=== PATIENT | female | born 1985 | race Two or more races ===

== ENCOUNTER → 2024-10-21 | Outpatient (CLI) | payer BC, SELFPAY ==
[2024-10-21 13:17] LABS: Basophils % (Auto) 0 % (0-2.5); Eosinophils # (Auto) 0.1 Thou/mm3 (0.0-0.5); Eosinophils % (Auto) 1 % (0-10); Hemoglobin 11.1 g/dL (12.0-16.0); Immature Granulocytes % (Auto) 2 % (0-0); Immature Granulocytes Auto 0.28 Thou/mm3 (0.00-0.00); Lymphocytes # (Auto) 2.8 Thou/mm3 (1.0-4.8); Lymphocytes % (Auto) 23 % (10-50); Mean Corpuscular Hemoglobin 26.9 pg (25.0-35.0); Mean Corpuscular Volume 90 fL (80-100); Monocytes # (Auto) 0.6 Thou/mm3 (0.0-0.8); Monocytes % (Auto) 5 % (0-12); Neutrophils # (Auto) 8.3 Thou/mm3 (1.8-7.7); Neutrophils % (Auto) 69 % (37-80); Nucleated Red Blood Cell % 0 /100 WBC (0); Platelet Count 319 Thou/mm3 (140-440); RDW Standard Deviation 49.5 fL (36.4-46.3); Red Blood Count 4.13 Miln/mm3 (4.00-5.20); White Blood Count 12.1 Thou/mm3 (3.6-11.0)
[2024-10-21 13:47] LABS: Syphilis Nonreactive (Nonreactive)
== END | disposition home or self-care (01) ==
LOC: SLDO 11:51
PROVIDERS: Referring Provider Specialist; Visit Provider Specialist
DX: Z34.83 Encounter for supervision of other normal pregnancy, third trimester (principal)
CPT/HCPCS: 36415; 85025; 86780

== ENCOUNTER → 2024-11-17 | Outpatient (CLI) | payer BC, SELFPAY ==
[2024-11-18 07:50] LABS: BVAG Candida Negative (Negative); Bacterial Vaginosis Markers Negative (Negative); Candida glabrata Negative (Negative); Candida krusei PCR Negative (Negative); Trichomonas Negative (Negative)
== END | disposition home or self-care (01) ==
PROVIDERS: Referring Provider Specialist; Visit Provider Specialist
DX: Z34.83 Encounter for supervision of other normal pregnancy, third trimester (principal)
CPT/HCPCS: 81514; 87086

== ENCOUNTER → 2024-12-08 | Outpatient (CLI) | payer BC, SELFPAY ==
[2024-12-08 11:27] LABS: Basophils % (Auto) 0 % (0-2.5); Eosinophils % (Auto) 0 % (0-10); Hematocrit 35.2 % (36.0-46.0); Hemoglobin 11.6 g/dL (12.0-16.0); Immature Granulocytes % (Auto) 2 % (0-0); Immature Granulocytes Auto 0.22 Thou/mm3 (0.00-0.00); Lymphocytes # (Auto) 2.9 Thou/mm3 (1.0-4.8); Lymphocytes % (Auto) 27 % (10-50); Mean Corpuscular Hemoglobin 25.4 pg (25.0-35.0); Mean Corpuscular Volume 77 fL (80-100); Monocytes # (Auto) 0.6 Thou/mm3 (0.0-0.8); Monocytes % (Auto) 6 % (0-12); Neutrophils # (Auto) 6.8 Thou/mm3 (1.8-7.7); Neutrophils % (Auto) 64 % (37-80); Nucleated Red Blood Cell % 0 /100 WBC (0); Platelet Count 284 Thou/mm3 (140-440); RDW Standard Deviation 41.5 fL (36.4-46.3); Red Blood Count 4.56 Miln/mm3 (4.00-5.20); White Blood Count 10.6 Thou/mm3 (3.6-11.0)
[2024-12-08 11:35] LABS: INR 0.9 (0.9-1.3); Partial Thromboplastin Time 27.1 Seconds (22.0-36.0); Prothrombin Time 9.9 Seconds (9.0-12.2)
[2024-12-08 11:58] LABS: Alanine Aminotransferase 11 U/L (10-49); Albumin, Serum 3.8 gm/dL (3.5-5.0); Albumin/Globulin Ratio 1.5 (1.2-2.2); Alkaline Phosphatase 124 U/L (46-116); Anion Gap 9 (7-16); Aspartate Amino Transferase 17 U/L (0-34); BUN/Creatinine Ratio 16 Ratio (12-20); Bilirubin,Total 0.3 mg/dL (0.3-1.2); Blood Urea Nitrogen 11 mg/dL (9-23); Calcium (Corrected) 10.2 mg/dL (8.5-10.1); Carbon Dioxide 20.6 mMol/L (20.0-31.0); Chloride 106 mMol/L (98-107); Creatinine (Component) 0.7 mg/dL (0.6-1.3); Globulin 2.6 gm/dL (2.3-3.5); Glucose 103 mg/dL (74-106); Osmolality,Calculated 271 (275-295); Sodium 136 mMol/L (136-145); Total Protein 6.4 gm/dL (5.7-8.2); eGFR > 60 See Note
[2024-12-08 12:04] LABS: Syphilis Nonreactive (Nonreactive)
== END | disposition home or self-care (01) ==
LOC: COPL 10:22
PROVIDERS: PCP Family Medicine; Referring Provider Specialist; Visit Provider Specialist
DX: Z34.83 Encounter for supervision of other normal pregnancy, third trimester (principal)
CPT/HCPCS: 36415; 80053; 85025; 85610; 85730; 86780; 86900; 86901

== ENCOUNTER 2024-12-09 05:30 | Inpatient (IN) | payer BC, SELFPAY ==
--- NOTE | 2024-12-02 15:33 | ESHP_ITS ---
RE: MAIKOL TOVAR : 1985 DATE OF ADMISSION: 12/09/2024 HISTORY OF PRESENT ILLNESS: This is a 39-year-old 2 para 1-0-0-1 with due date of 12/14/2024 with intrauterine at 39 weeks and 2 days on 12/09/2024, who presents for repeat delivery. The patient reports occasional contraction. She denies any leaking or bleeding. She reports normal movement. ALLERGIES: NO KNOWN DRUG ALLERGIES. MEDICATIONS: 1. multivitamin 1 p.o. daily. 2. Aspirin 81 mg 1 p.o. daily. SOCIAL HISTORY: She denies any alcohol or drug use or smoking. 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. PAST MEDICAL HISTORY: Carrier for cystic fibrosis (father of the baby is not a carrier for cystic fibrosis). FAMILY HISTORY: Denies. OBSTETRIC HISTORY: 07/2014, 40 weeks, delivery, 6 pound 9 ounce female, no complications. PAST SURGICAL HISTORY: delivery in 2013. REVIEW OF SYSTEMS: She denies any chest pain, palpitations, cough, fever, shortness of breath or lower extremity pain. PHYSICAL EXAMINATION: VITAL SIGNS: Blood pressure 123/72, heart rate 88, respirations 18, temperature 98.2, and weight 188 pounds. HEENT: Oropharynx and sclerae are clear. LUNGS: Clear to auscultation bilaterally. HEART: Regular rate and rhythm. ABDOMEN: Gravid term size. Old Pfannenstiel scar noted. EXTREMITIES: Nontender. SKIN: No gross rashes or lesions. NEUROLOGIC: No focal deficit. ASSESSMENT: Intrauterine at 39 weeks and 2 days on 12/09/2024. Previous delivery. Elects repeat delivery. PLAN: Repeat delivery. Informed consent was obtained. The patient was made aware of the risks, complications, alternatives, and benefits of the proposed procedure and she agrees. DT: 14:16:04 TT: 15:31:00 Ref: [id number] - TID: [id number]
[2024-12-09] VITALS (15 sets, daily range): BP systolic 107–135; BP diastolic 55–86; PULSE 71–108; RESP 16–20; TEMP 36.3–37; O2SAT 97–99; BMI 37.3
[2024-12-09] MEDS: RINGERS LACTATED 1000 ML 1,000 ML 100 ML IV ×3 (06:02→20:38)
[2024-12-09] MEDS: CITRIC ACID/SODIUM CITR 15 ML UDC (BICITRA) 30 ML PO (07:21)
[2024-12-09] MEDS: ceFAZolin/D5W 2 GM IV 2 GM/100 ML BAG IV (07:21)
[2024-12-09] MEDS: FAMOTIDINE INJ 10 MG/ML VIAL 2 ML 20 MG IV (07:21)
--- NOTE | 2024-12-09 08:34 | PD.LDDS ---
DS: Providers Provider Date of admission: 12/09/24 05:30 Primary care physician: Alex Benoit MD Admitting Provider: J Luis Grijalva MD Attending Provider on Admission: J Luis Grijalva MD Attending Provider on DC: J Luis Grijalva MD Discharging Provider: J Luis Grijalva MD DS: Diagnosis Problem List Completed Was Problem List Reviewed/Reconciled?: Yes Summary/Hosp Course Peripartum Data Procedures: Procedures Operation Date: 12/09/24 07:45 Actual Procedure Side Surgeon p in OB J Luis Grijalva MD Time Spent with Patient Time attestation: Total time spent providing and/or coordinating discharge services: Exam Vital Signs Temp Pulse Resp BP 98.1 F 87 17 123/78 12/09/24 05:35 12/09/24 06:09 12/09/24 05:35 12/09/24 06:09 Discharge Plan Plan Patient Disposition: HOME (Self Care) Patient condition on transfer: Stable Prescriptions/Referrals Prescriptions/Med Rec: No Action No Known Home Medications Referrals: Alex Benoit MD [Primary Care Provider] - Patient/Caregiver Discharge Instructions Discharge Activity: activity as tolerated Other Discharge Activity Instructions:: Follow up office 1 week. Education Materials: C Section Dc Print Language: [place] Stand Alone Forms: Janessa Award Info., Patient Portal Info Letter Discharge Order Discharge Orders: Discharge (Routine); Ordered 12/11/24 Ordered By: J Luis Grijalva Planned Discharge Date 12/11/24
--- NOTE | 2024-12-09 09:03 | ESOP_ITS ---
RE: MAIKOL TOVAR : 1985 DATE OF OPERATION: 12/09/2024 PREOPERATIVE DIAGNOSES: 1. Intrauterine at 39 weeks and 2 days. 2. Previous delivery, elects repeat delivery. POSTOPERATIVE DIAGNOSES: 1. Intrauterine at 39 weeks and 2 days. 2. Previous delivery, elects repeat delivery. 3. Adenomyosis. 4. Endometriosis. PROCEDURE PERFORMED: A repeat low transverse section via Pfannenstiel skin incision. SURGEON: J Luis Grijalva DO BLADE OPERATOR: HALLEY Child ANESTHESIA: Spinal. ANESTHESIOLOGIST: Manjeet Andujar CRNA ESTIMATED BLOOD LOSS: 500 mL. COMPLICATIONS: None. COUNTS: Correct. PATHOLOGY: None. FINDINGS: A live female . Yamil breech presentation. Clear amniotic fluid. Apgars 9 and 9. Weight 7 pounds 5 ounces. Superficial endometriotic implants on the posterior uterosacral ligaments and both ovaries, adenomyosis. DESCRIPTION OF PROCEDURE: After proper informed consent was obtained and the patient was made aware of the risks, complications, alternatives, and benefits of the proposed procedure, she was taken to the operating room where she underwent induction of spinal anesthesia. She was placed in the dorsal supine position with leftward tilt. She was prepped and draped in the usual sterile fashion. A timeout was performed. A Pfannenstiel skin incision was made with scalpel, carried through to the underlying layer of fascia with the Bovie. The fascia was nicked in the midline. Incision extended bilaterally with the Bovie. The inferior aspect of the fascial incision was grasped with Harris clamps and elevated. The underlying rectus muscles were dissected off with the Bovie. The rectus muscles were in the midline. The peritoneum was identified between 2 Murphy clamps and entered sharply with Metzenbaum scissors. The incision was extended superiorly and inferiorly with good visualization of the bladder. Bladder blade was inserted. The vesicouterine peritoneum was incised transversely and bladder flap created digitally. Bladder blades were reinserted. The lower uterine segment was incised in a transverse fashion with scalpel. The incision was extended bilaterally digitally. The infant's head delivered. The mouth and nose suctioned with bulb suction. The cord was clamped and cut. The was sent off to awaiting pediatric staff. Cord blood and gases were sent. The placenta was then removed manually. The uterus was exteriorized and cleared off all clots and debris. The uterine incision was closed with a #1-0 chromic catgut suture in a running fashion. A second layer same suture was used to imbricate the first layer and obtained excellent hemostasis. The vesicouterine peritoneum was closed with 0 chromic catgut suture in running fashion. The muscle was closed with a chromic catgut suture in running fashion. The fascia was closed with 0 Vicryl beginning at each angle and ending in the center in running fashion. Subcutaneous tissue was irrigated with normal saline solution and closed with 2-0 chromic catgut suture in a running fashion. The skin was closed with 4-0 Monocryl. A Dermabond and Prineo dressing was applied. A sterile pressure dressing was applied. She tolerated the procedure well. Counts were correct. I discussed with the patient the nature of her condition, the intraoperative findings, expectations for recovery. All questions were answered. DT: 08:31:18 TT: 09:01:00 Ref: [id number] - TID: [id number]
[2024-12-09] MEDS: ONDANSETRON INJ 2 MG/ML INJ 2 ML 4 MG IV (09:12)
[2024-12-09] MEDS: METOCLOPRAMIDE INJ 5 MG/ML VIAL 2 ML 10 MG IVP (10:28)
[2024-12-09] MEDS: OXYTOCIN in NS 20 units 20 UNIT/1,000 ML BAG 125 UNIT IV (10:37)
[2024-12-09] MEDS: KETOROLAC INJ 30 MG/ML VIAL IVP ×2 (10:45→20:37)
[2024-12-09 12:38] LABS: HIV (1&2) Antibody Rapid Non-Reactive
--- NOTE | 2024-12-09 13:04 | OBDSUM_ITS ---
Data (Saleem) Data : 2 Para: 1 Term: 1 : 0 : 0 Delivery Data (Saleem) Labor Data ROM Date: 12/09/24 ROM Time: 08:03 Rupture Type: AROM Amniotic Fluid: Clear Delivery Data EDC: 12/14/24 EDC calculated by:: LMP/early US confirmation Labor Onset Stage 1 Date: 12/09/24 Labor Onset Stage 1 Time: 08:03 Labor Onset Stage 2 Date: 12/09/24 Labor Onset Stage 2 Time: 08:03 Delivery Date: 12/09/24 Delivery Time: 08:04 Gestational age (weeks): 39 Gestational age (days): 2 Placenta Delivery Date: 12/09/24 Placenta Delivery Time: 08:05 Delivered by: J Luis Grijalva Delivery nurse: Alma Rosa Nunez Other staff at delivery: Nursery Nurse Other staff at delivery: Yari Dhillon Delivery Method Delivery: Delivery Type: Repeat Presentation: Vertex Position: OA Anesthesia Type Primary Anesthesia: Spinal Placenta Placenta Delivery: Manual Placenta Cultures Obtained: No Placenta Sent for Examination: No Cord Sample: Cord Blood Obtained EBL Estimated blood loss (ml): 500 Additional Procedures None Complications Complications: None [place]wick Data (Saleem) Data Gender: Female Infant Weight Grams: 3320 1 Minute Total: 8 5 Minute Total: 9
[2024-12-09 14:16] LABS: Basophils # (Auto) 0.1 Thou/mm3 (0.0-0.2); Basophils % (Auto) 0 % (0-2.5); Eosinophils # (Auto) 0.1 Thou/mm3 (0.0-0.5); Eosinophils % (Auto) 0 % (0-10); Hematocrit 34.4 % (36.0-46.0); Hemoglobin 11.4 g/dL (12.0-16.0); Immature Granulocytes % (Auto) 1 % (0-0); Immature Granulocytes Auto 0.16 Thou/mm3 (0.00-0.00); Lymphocytes # (Auto) 1.9 Thou/mm3 (1.0-4.8); Lymphocytes % (Auto) 12 % (10-50); Mean Corpuscular HGB Conc 33.1 g/dl (31.0-37.0); Mean Corpuscular Volume 79 fL (80-100); Monocytes # (Auto) 0.8 Thou/mm3 (0.0-0.8); Monocytes % (Auto) 5 % (0-12); Neutrophils # (Auto) 12.4 Thou/mm3 (1.8-7.7); Neutrophils % (Auto) 81 % (37-80); Nucleated Red Blood Cell % 0 /100 WBC (0); Platelet Count 262 Thou/mm3 (140-440); RDW Standard Deviation 43.3 fL (36.4-46.3); Red Blood Count 4.38 Miln/mm3 (4.00-5.20); White Blood Count 15.3 Thou/mm3 (3.6-11.0)
[2024-12-09] MEDS: ACETAMINOPHEN IVPB 1,000 MG/100 ML VIAL 250 MG IV (15:56)
[2024-12-10 00:20] VITALS: BP 102/66; PULSE 83; RESP 16; TEMP 36.8; O2SAT 97
[2024-12-10 04:15] VITALS: BP 97/64; PULSE 80; RESP 18; TEMP 36.9; O2SAT 96
[2024-12-10 08:10] VITALS: BP 104/68; PULSE 101; RESP 18; TEMP 36.9; O2SAT 95
[2024-12-10] MEDS: IBUPROFEN TAB 400 MG TABLET 800 MG PO ×2 (08:22→19:26)
--- NOTE | 2024-12-10 10:19 | ESPR_ITS ---
RE: MAIKOL TOVAR : 1985 DATE OF SERVICE: 12/10/2024 S: Postop day #1, the patient denies any problems or complaints. She is voiding. She is ambulating. She is tolerating regular diet. She is passing flatus. She denies any excessive vaginal bleeding. She denies any dizziness or lightheadedness. She denies any chest pain, palpitations, shortness of breath or lower extremity pain. She denies any depression or anxiety. O: Vital Signs: Blood pressure 97/64, heart rate 80, respirations 18, temperature 98.4, pulse ox 96% on room air. Lungs: Clear to auscultation bilaterally. Heart: Regular rate and rhythm. Abdomen: Fundus is firm. Dressing dry and intact. Extremities: Nontender. LABORATORY DATA: Hemoglobin pre-delivery is 11.6, post-delivery is 11.4. ASSESSMENT: Postop day #1 status post delivery. P: Remove dressing. Discontinue IV. Encourage ambulation. support. Possible discharge home tomorrow. DT: 07:59:46 TT: 10:18:00 Ref: [id number] - TID: [id number]
[2024-12-10 11:32] VITALS: BP 104/68; PULSE 86; RESP 16; TEMP 36.7; O2SAT 98
[2024-12-10] MEDS: ACETAMINOPHEN 325 MG TABLET 650 MG PO (15:53)
[2024-12-10 19:42] VITALS: BP 118/79; PULSE 85; RESP 19; TEMP 37.1; O2SAT 96
[2024-12-10 23:18] VITALS: BP 113/73; PULSE 88; RESP 17; TEMP 37; O2SAT 97
[2024-12-11] MEDS: HYDROcodone/APAP 5/325 TABLET 1 TAB PO (02:32)
[2024-12-11 04:08] VITALS: BP 108/67; PULSE 84; RESP 19; TEMP 36.6; O2SAT 95
[2024-12-11 07:48] VITALS: BP 127/81; PULSE 89; RESP 16; TEMP 36.9
[2024-12-11] MEDS: IBUPROFEN TAB 400 MG TABLET 800 MG PO (09:30)
--- NOTE | 2024-12-11 09:41 | ESPR_ITS ---
RE: MAIKOL TOVAR : 1985 DATE OF SERVICE: 12/11/2024 S: Postop day #2, the patient denies any problem or complaints. O: Vital Signs: Stable. Afebrile. Abdomen: Incision clear and intact. Extremities: Nontender. A: Postop day #2, status post delivery. P: Discharge home. Discharge instructions given. Follow up in the office in 1 week. DT: 07:12:09 TT: 09:38:00 Ref: [id number] - TID: [id number]
== END 2024-12-11 11:35 | disposition home or self-care (01) | DRG 788 ==
LOC: S4SX 08:21 → S4NX 08:30
PROVIDERS: Admitting Provider Specialist; PCP Family Medicine; Visit Provider Specialist
PROC: 10D00Z1 Extraction of Products of Conception, Low, Open Approach (ICD-10-PCS; CPT 59514; principal; 2024-12-09 07:30)
DX: O34.211 Maternal care for low transverse scar from previous cesarean delivery (principal); Z37.0 Single live birth; Z3A.39 39 weeks gestation of pregnancy; O32.1XX0 Maternal care for breech presentation, not applicable or unspecified; O34.83 Maternal care for other abnormalities of pelvic organs, third trimester; N80.3A3 Superficial endometriosis of the bilateral uterosacral ligament(s); N80.113 Superficial endometriosis of bilateral ovaries; N80.03 Adenomyosis of the uterus
CPT/HCPCS: 36415; 85025; 86703; 86780; 86850; 86900; 86901; 94762; A4649; J0131; J0689; J1885; J2274; J2371; J2405; J2590; J2765; J3490; J7120; A9270; J2270

== ENCOUNTER → 2025-01-19 | Outpatient (CLI) | payer BC, SELFPAY | END | disposition home or self-care (01) | LOC: SLDO 15:29 | PROVIDERS: Referring Provider Physician Assistant Medical; Visit Provider Physician Assistant Medical | DX: R10.2 Pelvic and perineal pain (principal) | CPT/HCPCS: 87077; 87086; 87186 ==